=== PATIENT | female | born 1995 | race Caucasian/White ===

== ENCOUNTER 2016-12-15 18:55 | Emergency (ER) | payer MEDICAID ==
--- NOTE | 2016-12-15 19:13 | ER Document Report ---
ED Psych Disorder / Suicide - General Chief Complaint: Possible Overdose Stated Complaint: POSSIBLE OVERDOSE Time Seen by Provider: 12/15/16 19:02 Mode of Arrival: Medic Information source: Patient - HPI Patient complains to provider of: Overdose, Suicidal attempt Onset: This evening Onset was: Sudden Quality of pain: No pain Suicide Risk Factors: Depressed Situational problems related to: Recent Suicide Attempt Method: Overdose Overdose of: Anti-depressants Strength: 200 Amount: 7 Time of ingestion: 17:00 Normal mood: No Associated symptoms: Depressed, Flat affect Similar symptoms previously: No Recently seen / treated by doctor: No Notes: Patient is a 21-year-old female patient is a 21-year-old female with a history of depression, ODD, ADHD, bipolar disorder, who was brought to the emergency room by EMS for suicide attempt by overdose, patient admits to taking 7 Seroquel 200 mg tablets at approximately 5 PM this evening, she admits that she was trying to kill herself because her grandfather recently and she wants to join him because he was always very kind and supportive to her, she denies any previous attempts, denies any injury otherwise, states she did not eat much food today, and feels tired at the present time but denies any nausea or vomiting, patient was administered activated charcoal via EMS in route to the emergency room - Related Data Allergies/Adverse Reactions: No Known Allergies Allergy (Verified 12/15/16 19:05) Home Medications: Current Home Medications Aripiprazole 10 mg PO DAILY 12/15/16 [History] Buspirone HCl 1 tab PO BID 12/15/16 [History] Fluoxetine HCl 20 mg PO DAILY 12/15/16 [History] Fluoxetine HCl [Prozac] 40 mg PO QHS 12/15/16 [History] Guanfacine HCl [Guanfacine HCl ER] 2 tab PO QAM 12/15/16 [History] Quetiapine Fumarate 200 mg PO DAILY 12/15/16 [History] Past Medical History - General Information source: Patient - Social History Smoking Status: Never Smoker Frequency of alcohol use: None Drug Abuse: None Family History: Reviewed & Not Pertinent Review of Systems - Review of Systems Constitutional: No symptoms reported EENT: No symptoms reported Cardiovascular: No symptoms reported Respiratory: No symptoms reported Gastrointestinal: No symptoms reported Genitourinary: No symptoms reported Female Genitourinary: No symptoms reported Musculoskeletal: No symptoms reported Skin: No symptoms reported Hematologic/Lymphatic: No symptoms reported Neurological/Psychological: See HPI -: Yes All other systems reviewed and negative Physical Exam - Vital signs Vitals: Temp Pulse Resp BP Pulse Ox 97.9 F 101 H 18 127/85 H 97 12/15/16 19:02 12/15/16 19:02 12/15/16 19:02 12/15/16 19:02 12/15/16 19:02 Interpretation: Tachycardic - General General appearance: Alert - Appears drowsy In distress: None - HEENT Head: Normocephalic, Atraumatic Eyes: Normal Conjunctiva: Normal Extraocular movements intact: Yes Eyelashes: Normal Pupils: PERRL Ears: Normal Sinus: Normal Mouth/Lips: Other - Black discoloration to lips and teeth from activated charcoal - Respiratory Respiratory status: No respiratory distress Chest status: Nontender Breath sounds: Normal Chest palpation: Normal - Cardiovascular Rhythm: Regular Heart sounds: Normal auscultation Murmur: No - Abdominal Inspection: Normal Distension: No distension Bowel sounds: Normal Tenderness: Nontender Organomegaly: No organomegaly - Back Back: Normal, Nontender - Extremities General upper extremity: Normal inspection, Nontender, Normal color, Normal ROM , Normal temperature General lower extremity: Normal inspection, Nontender, Normal color, Normal ROM , Normal temperature, Normal weight bearing. No: Julio's sign - Neurological Neuro grossly intact: Yes Cognition: Normal Orientation: AAOx4 Nanette Coma Scale Eye Opening: Spontaneous [place] Coma Scale Verbal: Oriented Nanette Coma Scale Motor: Obeys Commands Nanette Coma Scale Total: 15 Speech: Normal Motor strength normal: LUE, RUE, LLE, RLE Sensory: Normal - Psychological Associated symptoms: Depressed, Flat affect - Skin Skin Temperature: Warm Skin Moisture: Dry Skin Color: Normal Course - Re-evaluation Re-evalutation: 12/15/16 19:31 Patient was discussed with [facility] poison control, who recommends monitoring patient for tachycardia, QTC prolongation, etc. observation prior to medical clearance patient clearly admits to this being a suicide attempt, stating she wants to join her grandfather who recently , She is unsafe to return home at this point in time, therefore IVC paperwork will be completed and patient will be held until evaluation by mental health team for further treatment recommendation - Vital Signs Vital signs: Temp Pulse Resp BP Pulse Ox 97.9 F 101 H 18 127/85 H 97 12/15/16 19:02 12/15/16 19:02 12/15/16 19:02 12/15/16 19:02 12/15/16 19:02 - EKG Interpretation by Me EKG shows normal: Sinus rhythm Rate: Normal Rhythm: NSR Discharge - Discharge Clinical Impression: Attempted suicide Drug overdose Qualifiers: Encounter type: initial encounter Injury intent: intentional self-harm Qualified Code(s): T50.902A - Poisoning by unspecified drugs, medicaments and biological substances, intentional self-harm, initial encounter Depression Qualifiers: Depression Type: unspecified Qualified Code(s): F32.9 - Major depressive disorder, single episode, unspecified Condition: Stable Disposition: PSYCH HOSP/UNIT
[2016-12-15 20:24] LABS: ABSOLUTE BASOPHILS # (AUTO) 0.1 10^3/uL (0.0-0.2); ABSOLUTE LYMPHOCYTES (AUTO) 1.5 10^3/uL (0.5-4.7); ABSOLUTE MONOCYTES (AUTO) 0.6 10^3/uL (0.1-1.4); ABSOLUTE NEUT (AUTO) 7.9 10^3/uL (1.7-8.2); BASOPHILS % (AUTO) 0.7 % (0-2); EOSINOPHILS % (AUTO) 0.2 % (0-6); HEMATOCRIT 41.1 % (36.0-47.0); HEMOGLOBIN 13.8 g/dL (12.0-15.5); HGB HCT DIFFERENCE 0.3; LYMPHOCYTES % (AUTO) 15.2 % (13-45); MEAN CORPUSCULAR HEMOGLOBIN 27.6 pg (27.0-33.4); MEAN CORPUSCULAR HGB CONC 33.6 g/dL (32.0-36.0); MEAN CORPUSCULAR VOLUME 82 fl (80-97); MONOCYTES % (AUTO) 6.4 % (3-13); RED BLOOD COUNT 4.99 10^6/uL (3.72-5.28); RED CELL DISTRIBUTION WIDTH 12.9 % (11.5-14.0); SEGMENTED NEUTROPHILS % (AUTO) 77.5 % (42-78); WHITE BLOOD COUNT 10.2 10^3/uL (4.0-10.5)
[2016-12-15 20:43] LABS: ALANINE AMINOTRANSFERASE 23 U/L (9-52); ALBUMIN 3.9 g/dL (3.5-5.0); ALKALINE PHOSPHATASE 81 U/L (38-126); ANION GAP 12 (5-19); ASPARTATE AMINO TRANSFERASE 24 U/L (14-36); BILIRUBIN,DIRECT 0.3 mg/dL (0.0-0.4); BILIRUBIN,TOTAL 0.4 mg/dL (0.2-1.3); BLOOD UREA NITROGEN 17 mg/dL (7-20); CALCIUM 9.7 mg/dL (8.4-10.2); CARBON DIOXIDE 23 mmol/L (22-30); CHLORIDE 106 mmol/L (98-107); CREATININE RESULT 0.91 mg/dL (0.52-1.25); GLUCOSE 106 mg/dL (75-110); POTASSIUM 4.3 mmol/L (3.6-5.0); SODIUM 141.3 mmol/L (137-145); TOTAL PROTEIN 7.4 g/dL (6.3-8.2)
[2016-12-15 20:45] LABS: ALCOHOL < 10 mg/dL (NONE DETECTED)
[2016-12-15 22:27] LABS: APPEARANCE,URINE CLOUDY; BILIRUBIN,URINE NEGATIVE (NEGATIVE); GLUCOSE, URINE NEGATIVE (NEGATIVE); KETONES,URINE NEGATIVE (NEGATIVE); LEUKOCYTE ESTERASE,URINE MODERATE (NEGATIVE); NITRITE,URINE NEGATIVE (NEGATIVE); PROTEIN,URINE 30 mg/dL (NEGATIVE); URINE SPECIFIC GRAVITY 1.028; UROBILINOGEN,URINE NEGATIVE mg/dL (<2.0)
[2016-12-15 22:41] LABS: URINE BARBITURATES SCREEN NEGATIVE; URINE METHADONE SCREEN NEGATIVE; URINE OPIATES LOW NEGATIVE; URINE PHENCYCLIDINE SCREEN NEGATIVE
--- NOTE | 2016-12-16 09:35 | ER Document Report ---
Doctor's Note Notes: 12/16/16 09:34 I have evaluated this pt. this am and she has no c/o at this time. She feels all of her needs are being met and her physical exam is normal. She is awaiting disposition per mental health.
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
[2016-12-16 15:47] VITALS: BP 126/73
--- NOTE | 2016-12-16 17:45 | EKG REPORT ---
SEVERITY:- NORMAL ECG - SINUS RHYTHM : Confirmed by: Carin Andrea MD 16-Dec-2016 17:45:33
== END 2016-12-16 15:40 | disposition home or self-care (01) ==
LOC: ER 18:55
DX: T43.592A Poisoning by other antipsychotics and neuroleptics, intentional self-harm, initial encounter (principal); F32.9 Major depressive disorder, single episode, unspecified; F91.3 Oppositional defiant disorder; Z79.899 Other long term (current) drug therapy
CPT/HCPCS: 36415; 80053; 80307; 81001; 84703; 85025; 93005; 93010; 99285

== ENCOUNTER 2017-09-01 15:36 | Emergency (ER) | payer MEDICAID ==
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
--- NOTE | 2017-09-01 18:50 | RADIOLOGY REPORT (SQ) ---
EXAM DESCRIPTION: CHEST PA/LAT COMPLETED DATE/TIME: 09/01/2017 6:37 pm REASON FOR STUDY: 6, cough COMPARISON: None. EXAM PARAMETERS: NUMBER OF VIEWS: two views TECHNIQUE: Digital Frontal and Lateral radiographic views of the chest acquired. RADIATION DOSE: NA LIMITATIONS: none FINDINGS: LUNGS AND PLEURA: No opacities, masses or pneumothorax. No pleural effusion. MEDIASTINUM AND HILAR STRUCTURES: No masses or contour abnormalities. HEART AND VASCULAR STRUCTURES: Heart normal size. No evidence for failure. BONES: No acute findings. HARDWARE: None in the chest. OTHER: No other significant finding. IMPRESSION: NO SIGNIFICANT RADIOGRAPHIC FINDING IN THE CHEST. TECHNICAL DOCUMENTATION: JOB ID: [id number] [employer]- All Rights Reserved
--- NOTE | 2017-09-01 18:50 | RADIOLOGY REPORT (SQ) ---
EXAM DESCRIPTION: WRIST LEFT 3 VIEWS COMPLETED DATE/TIME: 09/01/2017 6:37 pm REASON FOR STUDY: 8, left wrist COMPARISON: None. NUMBER OF VIEWS: Three views. TECHNIQUE: AP, lateral, and oblique radiographic images acquired of the left wrist. LIMITATIONS: None. FINDINGS: MINERALIZATION: Normal. BONES: No acute fracture or dislocation. No worrisome bone lesions. Normal alignment. SOFT TISSUES: No soft tissue swelling. No foreign body. OTHER: No other significant finding. IMPRESSION: NEGATIVE STUDY OF THE LEFT WRIST. NO RADIOGRAPHIC EVIDENCE OF ACUTE INJURY. TECHNICAL DOCUMENTATION: JOB ID: [id number] [employer]- All Rights Reserved
[2017-09-01] MEDS ORDERED: QUETIAPINE FUMARATE 25 MG TABLET PO ONE (19:39)
[2017-09-01] MEDS ORDERED: FLUOXETINE HCL 20 MG CAPSULE PO ONE (19:39)
[2017-09-01] MEDS ORDERED: BUSPIRONE HCL 10 MG TABLET PO ONE (19:39)
[2017-09-01] MEDS ORDERED: ARIPIPRAZOLE 5 MG TABLET PO ONE (19:41)
[2017-09-02 19:54] VITALS: BP 135/79
== END 2017-09-02 19:50 | disposition home or self-care (01) ==
LOC: ER 15:36 → EEVIPCON 15:36 → ER 09-02 19:50
DX: M25.572 Pain in left ankle and joints of left foot (principal); M79.672 Pain in left foot; M25.532 Pain in left wrist; Y04.2XXA Assault by strike against or bumped into by another person, initial encounter; Y92.009 Unspecified place in unspecified non-institutional (private) residence as the place of occurrence of the external cause
CPT/HCPCS: 99284; 73610; 71046; 73630; 73110; J3490 ×4

== ENCOUNTER 2017-09-10 11:57 | Emergency (ER) | payer SELFPAY ==
--- NOTE | 2017-09-10 12:05 | ER Document Report ---
ED General - General Mode of Arrival: Medic Information source: Patient TRAVEL OUTSIDE OF THE U.S. IN LAST 30 DAYS: No - HPI Onset: Just prior to arrival Onset/Duration: Gradual Quality of pain: No pain Severity: None Pain Level: Denies Associated symptoms: denies: Chills, Fever, Shortness of breath Exacerbated by: Denies Relieved by: Denies Similar symptoms previously: Yes Recently seen / treated by doctor: No - General Stated Complaint: SUICIDAL IDEATION Time Seen by Provider: 09/10/17 12:03 Notes: This is a 22-year-old female with a history of depression and anxiety is brought in by ambulance because of suicidal ideations. Patient states she is unable to live with her mother in [facility]. She states she is homeless. She is previously from [place]. She denies any overdose currently. She has had a history of suicidal attempt with Seroquel. She does not have an active plan at this time. (TRINITY FONSECA) - Related Data Allergies/Adverse Reactions: No Known Allergies Allergy (Verified 09/01/17 15:39) Past Medical History - General Information source: Patient - Social History Smoking Status: Current Every Day Smoker Cigarette use (# per day): Yes - 1 pack a day Chew tobacco use (# tins/day): No Frequency of alcohol use: None Drug Abuse: None Lives with: Homeless Family History: Reviewed & Not Pertinent Patient has suicidal ideation: Yes Patient has homicidal ideation: No - Past Medical History Cardiac Medical History: Reports: None Pulmonary Medical History: Reports: Hx Asthma EENT Medical History: Reports: None Neurological Medical History: Reports: None Endocrine Medical History: Reports: None Renal/ Medical History: Reports: None. Denies: Hx Peritoneal Dialysis Malignancy Medical History: Reports: None GI Medical History: Reports: None Musculoskeltal Medical History: Reports None Skin Medical History: Reports None Psychiatric Medical History: Reports: Hx Attention Deficit Hyperactivity Disorder, Hx Bipolar Disorder, Hx Depression Traumatic Medical History: Reports: None Infectious Medical History: Reports: None Past Surgical History: Reports: Hx Tonsillectomy - and adenoids Review of Systems - Review of Systems Notes: Review of systems: Constitutional: Denies fever, chills. EENT: Denies ear pain, sinus tenderness, throat pain, throat swelling. Cardiovascular: Denies chest pain, palpitations, dyspnea or edema. Respiratory: Denies wheezing, cough, hemoptysis. Abdomen: Denies abdominal pain, nausea, vomiting, diarrhea. Denies BRBPR or melena. Genitourinary: Denies dysuria, pyuria, hematuria, flank pain. Musculoskeletal: denies joint pain or swelling, denies back pain. Neurologic: See H&P Skin: Denies rash, lesions. (TRINITY FONSECA) Physical Exam - Vital signs Vitals: Temp Pulse Resp BP Pulse Ox 97.8 F 96 18 131/89 H 100 09/10/17 12:08 09/10/17 12:08 09/10/17 12:08 09/10/17 12:08 09/10/17 12:08 Notes: Physical exam: GENERAL: 82-year-old female, alert and oriented 3, no acute distress HEAD: Atraumatic, normocephalic. EYES: Pupils equal round and reactive to light, extraocular movements intact, sclera anicteric, conjunctiva are normal. ENT: TMs normal, nares patent, oropharynx clear without exudates. Moist mucous membranes. NECK: Normal range of motion, supple without obvious mass or JVD. LUNGS: Breath sounds clear to auscultation bilaterally and equal. No wheezes rales or rhonchi. HEART: Regular rate and rhythm without murmurs, rubs or gallops. ABDOMEN: Soft, normoactive bowel sounds. No tenderness to palpation. No guarding, no rebound. No masses appreciated. EXTREMITIES: Normal range of motion, no pitting or edema. No clubbing or cyanosis. NEUROLOGICAL: Cranial nerves II through XII grossly intact. Normal speech, moving all extremities. PSYCH: Depressed, states she has suicidal ideations. SKIN: Warm, Dry, normal turgor, no rashes or lesions noted. (TRINITY FONSECA) Course - EKG Interpretation by Ct Rate: Tachycardia Rhythm: NSR - EKG shows sinus tachycardia with a ventricular rate of 105, no acute ST-T wave changes - Re-evaluation Re-evalutation: 09/10/17 12:46 Patient was seen by Dr. Barragan from the psychology team who knows the patient well. The patient has no active suicidal plan and she has been cleared for outpatient counseling. The patient did stay at the homeless long-term last night and will be referred back to their with referrals to counseling. From a medical standpoint: She looks quite good. She refused blood work and she appears competent at this time to do so. The urine analysis showed some white cells and red cells with fair amount of squamous epithelial cells. So this is not a great sample and the patient states that she recently has her menstrual cycle. She does not have any symptoms of UTI. Urine culture will be sent. (TRINITY FONSECA) - Vital Signs Vital signs: Temp Pulse Resp BP Pulse Ox 97.8 F 96 18 131/89 H 100 09/10/17 12:08 09/10/17 12:08 09/10/17 12:08 09/10/17 12:08 09/10/17 12:08 - Laboratory Laboratory results interpreted by me: 09/10/17 12:10 Urine Protein 30 H Urine Blood LARGE H Ur Leukocyte Esterase SMALL H Discharge - Discharge Clinical Impression: Homeless Depression Qualifiers: Depression Type: unspecified Qualified Code(s): F32.9 - Major depressive disorder, single episode, unspecified Condition: Stable Disposition: HOME, SELF-CARE Additional Instructions: DEPRESSION: Your evaluation reveals that you have mental depression. While symptoms may be vague, they often include disturbance of sleep, fatigue, loss of appetite , and general loss of interest in life. While depression may be a side effect of drugs, or a reaction to a major change in your life, many cases have no known cause. If depression is acute, and related to a major loss in your life, you can expect it to clear completely with time. If you have been depressed a long time , are prone to repeated bouts of depression or low mood, or have been thinking of suicide, get help. Depression can be treated with anti-depressant medication and counselling. Long-term depression will often take a few weeks to clear, even with appropriate medication. Follow-up care is important. SUICIDAL IDEATION: Suicidal ideation is a common medical term for thoughts about suicide, which may be as detailed as a formulated plan, without the suicidal act itself. Although most people who undergo suicidal ideation do not commit suicide, some go on to make suicide attempts. The range of suicidal ideation varies greatly from fleeting to detailed planning, role playing, and unsuccessful attempts. While thoughts about suicide are common, most people do not carry out serious actions to commit suicide. Based upon your evaluation and discussion with you, we do not believe you are currently at risk to act upon your thoughts of suicide. You have agreed to return to the Emergency Department, at any time , if you feel inclined to act upon your suicidal thoughts. FOLLOW-UP CARE: You have been given the homeless resources packet, street sheet with community resources and outpatient mental health resources list. You have been encouraged to follow up with [facility] walk in clinic to be seen for outpatient services and [facility] for your housing needs. If you experience worsening or a significant change in your symptoms, notify the physician immediately or return to the Emergency Department at any time for re-evaluation. Referrals: [facility] [Provider Group] - Follow up as needed
[2017-09-10 12:10] VITALS: BP 131/89
[2017-09-10 12:43] LABS: APPEARANCE,URINE CLOUDY; BILIRUBIN,URINE NEGATIVE (NEGATIVE); COLOR,URINE YELLOW; GLUCOSE, URINE NEGATIVE (NEGATIVE); KETONES,URINE NEGATIVE (NEGATIVE); LEUKOCYTE ESTERASE,URINE SMALL (NEGATIVE); NITRITE,URINE NEGATIVE (NEGATIVE); PROTEIN,URINE 30 mg/dL (NEGATIVE); URINE SPECIFIC GRAVITY 1.027; UROBILINOGEN,URINE NEGATIVE mg/dL (<2.0)
[2017-09-10 12:58] LABS: URINE AMPHETAMINES SCREEN NEGATIVE; URINE BARBITURATES SCREEN NEGATIVE; URINE BENZODIAZEPINES SCREEN NEGATIVE; URINE COCAINE SCREEN NEGATIVE; URINE MARIJUANA (THC) SCREEN NEGATIVE; URINE METHADONE SCREEN NEGATIVE; URINE PHENCYCLIDINE SCREEN NEGATIVE
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
--- NOTE | 2017-09-10 15:19 | EKG REPORT ---
SEVERITY:- OTHERWISE NORMAL ECG - SINUS TACHYCARDIA BORDERLINE RIGHT AXIS DEVIATION : Confirmed by: Benito Garcia 10-Sep-2017 15:18:10
== END 2017-09-10 13:00 | disposition home or self-care (01) ==
LOC: ER 11:57
DX: F32.9 Major depressive disorder, single episode, unspecified (principal); Z59.0 Homelessness; F41.9 Anxiety disorder, unspecified; Z79.899 Other long term (current) drug therapy; F17.210 Nicotine dependence, cigarettes, uncomplicated
CPT/HCPCS: 80307; 81001; 87086; 93005; 93010; 99285

== ENCOUNTER 2018-03-11 15:53 | Emergency (ER) | payer SELFPAY ==
[2018-03-11] MEDS ORDERED: IBUPROFEN 600 MG TABLET PO ONE (16:47)
--- NOTE | 2018-03-11 16:52 | ER Document Report ---
ED Medical Screen (RME) - General Chief Complaint: Nausea/Vomiting Stated Complaint: SYNCOPE Time Seen by Provider: 03/11/18 16:43 Notes: 23-year-old female who just spent a month in skilled nursing was discharged from skilled nursing system today. She walked onto the contract post office clerk's office in a chair and began having a mild headache. She states she gets a headache every day and this is the same character of pain behind both eyes and throughout her head. She stated that it was at that point that she passed out. She stated that she felt as if she was unconscious for 30 minutes was woken up by a deputy. The patient denies any fever chills or neck stiffness. States she feels very nauseous. States her abdomen feels crampy but as she has no focal pain denies any problems with urination. Patient has nowhere to go. She is homeless after being discharged from skilled nursing. Moved out of her family's house and has no residence. TRAVEL OUTSIDE OF THE U.S. IN LAST 30 DAYS: No - Related Data Allergies/Adverse Reactions: No Known Allergies Allergy (Verified 09/01/17 15:39) Past Medical History Pulmonary Medical History: Reports: Hx Asthma Renal/ Medical History: Denies: Hx Peritoneal Dialysis Psychiatric Medical History: Reports: Hx Attention Deficit Hyperactivity Disorder, Hx Bipolar Disorder, Hx Depression Past Surgical History: Reports: Hx Tonsillectomy - and adenoids Physical Exam - Vital signs Vitals: Temp Pulse Resp BP Pulse Ox 98.1 F 88 16 96/79 L 97 03/11/18 16:16 03/11/18 16:16 03/11/18 16:16 03/11/18 16:16 03/11/18 16:16 - Notes Notes: Abdomen is soft and supple my exam. Patient has poor eye contact. Neurologically she is intact cranial nerves II through XII intact with equal chemistry quality control technician strength. She states she has these headaches every day I do not feel a need to image her at this time. We will give her some ibuprofen she has already had a Zofran ODT. There may be a social component here since the patient has no vertigo. Course - Re-evaluation Re-evalutation: 03/11/18 16:51 Syncope workup - Vital Signs Vital signs: Temp Pulse Resp BP Pulse Ox 98.1 F 88 16 96/79 L 97 03/11/18 16:16 08/13/18 16:16 03/11/18 16:16 03/11/18 16:16 03/11/18 16:16
[2018-03-11 18:10] LABS: ABSOLUTE LYMPHOCYTES (AUTO) 1.3 10^3/uL (0.5-4.7); ABSOLUTE MONOCYTES (AUTO) 0.7 10^3/uL (0.1-1.4); ABSOLUTE NEUT (AUTO) 12.3 10^3/uL (1.7-8.2); BASOPHILS % (AUTO) 0.3 % (0-2); EOSINOPHILS % (AUTO) 0.1 % (0-6); HEMATOCRIT 42.8 % (36.0-47.0); HEMOGLOBIN 14.6 g/dL (12.0-15.5); LYMPHOCYTES % (AUTO) 9.2 % (13-45); MEAN CORPUSCULAR HEMOGLOBIN 28.9 pg (27.0-33.4); MEAN CORPUSCULAR HGB CONC 34.2 g/dL (32.0-36.0); MEAN CORPUSCULAR VOLUME 85 fl (80-97); MONOCYTES % (AUTO) 4.6 % (3-13); PLATELET COUNT 265 10^3/uL (150-450); RED BLOOD COUNT 5.06 10^6/uL (3.72-5.28); RED CELL DISTRIBUTION WIDTH 12.5 % (11.5-14.0); SEGMENTED NEUTROPHILS % (AUTO) 85.8 % (42-78); TOTAL CELLS COUNTED % (AUTO) 100 %; WHITE BLOOD COUNT 14.3 10^3/uL (4.0-10.5)
[2018-03-11 18:24] LABS: ALANINE AMINOTRANSFERASE 31 U/L (9-52); ALBUMIN 4.9 g/dL (3.5-5.0); ALKALINE PHOSPHATASE 113 U/L (38-126); ANION GAP 16 (5-19); ASPARTATE AMINO TRANSFERASE 23 U/L (14-36); BILIRUBIN,DIRECT 0.2 mg/dL (0.0-0.4); BILIRUBIN,TOTAL 0.6 mg/dL (0.2-1.3); BLOOD UREA NITROGEN 13 mg/dL (7-20); CALCIUM 10.1 mg/dL (8.4-10.2); CARBON DIOXIDE 24 mmol/L (22-30); CHLORIDE 106 mmol/L (98-107); GLUCOSE 98 mg/dL (75-110); LIPASE 187.3 U/L (23-300); POTASSIUM 4.5 mmol/L (3.6-5.0); SODIUM 145.5 mmol/L (137-145); TOTAL PROTEIN 8.1 g/dL (6.3-8.2)
[2018-03-11 19:19] LABS: APPEARANCE,URINE SLIGHTLY-CLOUDY; BILIRUBIN,URINE NEGATIVE (NEGATIVE); COLOR,URINE YELLOW; GLUCOSE, URINE NEGATIVE (NEGATIVE); KETONES,URINE 20 mg/dL (NEGATIVE); LEUKOCYTE ESTERASE,URINE SMALL (NEGATIVE); NITRITE,URINE NEGATIVE (NEGATIVE); PROTEIN,URINE 30 mg/dL (NEGATIVE); URINE SPECIFIC GRAVITY 1.027; UROBILINOGEN,URINE NEGATIVE mg/dL (<2.0)
--- NOTE | 2018-03-11 19:25 | RADIOLOGY REPORT (SQ) ---
EXAM DESCRIPTION: CT HEAD WITHOUT COMPLETED DATE/TIME: 03/11/2018 7:16 pm REASON FOR STUDY: headache, syncope COMPARISON: None. TECHNIQUE: Axial images acquired through the brain without intravenous contrast. Images reviewed wi th bone, brain and subdural windows. Additional sagittal and coronal reconstructions were generated. Images stored on PACS. All CT scanners at this facility use dose modulation, iterative reconstruction, and/or weight based d osing when appropriate to reduce radiation dose to as low as reasonably achievable (ALARA). [facility]: Dose Right [facility]: CareDose [facility]: Dose Right [facility]: Teradose 4D [facility]: [employer] RADIATION DOSE: CT Rad equipment meets quality standard of care and radiation dose reduction techniq ues were employed. CTDIvol: 53.2 mGy. DLP: 937 mGy-cm. mGy. LIMITATIONS: None. FINDINGS: VENTRICLES: Normal size and contour. CEREBRUM: No masses. No hemorrhage. No midline shift. No evidence for acute infarction. Normal gra y/white matter differentiation. No areas of low density in the white matter. CEREBELLUM: No masses. No hemorrhage. No alteration of density. No evidence for acute infarction. EXTRAAXIAL SPACES: No fluid collections. No masses. ORBITS AND GLOBE: No intra- or extraconal masses. Normal contour of globe without masses. CALVARIUM: No fracture. PARANASAL SINUSES: No fluid or mucosal thickening. SOFT TISSUES: No mass or hematoma. OTHER: No other significant finding. IMPRESSION: NORMAL BRAIN CT WITHOUT CONTRAST. EVIDENCE OF ACUTE STROKE: NO. COMMENT: Quality ID # [id number]: Final reports with documentation of one or more dose reduction techniques (e.g., Automated exposure control, adjustment of the mA and/or kV according to patient size, use of iterative reconstruction technique) TECHNICAL DOCUMENTATION: JOB ID: [id number]- All Rights Reserved Reading location - IP/workstation name: [email or web address]
[2018-03-11] MEDS ORDERED: DIAZEPAM 5 MG TABLET PO ONE (19:34)
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
[2018-03-11 19:51] VITALS: BP 115/72
--- NOTE | 2018-03-11 20:38 | EKG REPORT ---
SEVERITY:- OTHERWISE NORMAL ECG - SINUS RHYTHM BORDERLINE RIGHT AXIS DEVIATION : Confirmed by: Paul Mares MD 11-Mar-2018 20:37:56
== END 2018-03-11 19:45 | disposition home or self-care (01) ==
LOC: ER 15:53
DX: R55 Syncope and collapse (principal); F41.9 Anxiety disorder, unspecified; F32.9 Major depressive disorder, single episode, unspecified; R51 Headache; J45.909 Unspecified asthma, uncomplicated; Z59.0 Homelessness
CPT/HCPCS: 36415; 70450; 80053; 81001; 81025; 83690; 85025; 93005; 93010; 99285

== ENCOUNTER 2018-04-21 20:52 | Emergency (ER) | payer SELFPAY ==
[2018-04-22] MEDS ORDERED: ACETAMINOPHEN 325 MG TABLET PO ONE (02:13)
[2018-04-22] MEDS ORDERED: ACETAMINOPHEN 325 MG TABLET ONE (04:20)
--- NOTE | 2018-04-22 05:25 | RADIOLOGY REPORT (SQ) ---
EXAM DESCRIPTION: XR ANKLE 3 OR MORE VIEWS COMPLETED DATE/TME: 04/22/2018 02:13 CLINICAL HISTORY: 23 years, Female, pain COMPARISON: None. FINDINGS: 3 views of the right ankle. No acute fracture or dislocation. Normal osseous mineralization. Tibial plafond and talar dome have appropriate alignment. Base of the fifth metatarsal is intact. IMPRESSION: 1. No acute fracture or dislocation. 2010 [employer]- All Rights Reserved
--- NOTE | 2018-04-22 05:26 | RADIOLOGY REPORT (SQ) ---
EXAM DESCRIPTION: XR FOOT 3 OR MORE VIEWS COMPLETED DATE/TME: 04/22/2018 02:13 CLINICAL HISTORY: 23 years, Female, pain COMPARISON: None. FINDINGS: 3 views of the left foot. No acute fracture or dislocation. Normal osseous mineralization. Tarsals and metatarsals are appropriately aligned. IMPRESSION: 1. No acute fracture or dislocation. 2010 [employer] [employer]- All Rights Reserved
[2018-04-22 05:34] VITALS: BP 104/64
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
== END 2018-04-22 06:50 | disposition home or self-care (01) ==
LOC: ER 20:52
DX: M25.571 Pain in right ankle and joints of right foot (principal); M79.671 Pain in right foot; S91.332A Puncture wound without foreign body, left foot, initial encounter; M79.672 Pain in left foot; W26.8XXA Contact with other sharp object(s), not elsewhere classified, initial encounter; Y93.01 Activity, walking, marching and hiking; J45.909 Unspecified asthma, uncomplicated
CPT/HCPCS: 99283

== ENCOUNTER 2018-04-27 19:48 | Emergency (ER) | payer OTHER ==
[2018-04-27] MEDS ORDERED: ACETAMINOPHEN 325 MG TABLET PO ONE (20:11)
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
[2018-04-27 20:14] VITALS: BP 111/59
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
--- NOTE | 2018-04-27 21:05 | RADIOLOGY REPORT (SQ) ---
EXAM DESCRIPTION: TIBIA FIBULA RIGHT COMPLETED DATE/TIME: 04/27/2018 8:54 pm REASON FOR STUDY: RIGHT LEG PAIN, INJURY COMPARISON: None. NUMBER OF VIEWS: Two views. TECHNIQUE: Two radiographic images acquired of the right tibia and fibula to include the knee and an kle in at least one projection. LIMITATIONS: None. FINDINGS: MINERALIZATION: Normal. BONES: No acute fracture or dislocation. No worrisome bone lesions. SOFT TISSUES: No obvious swelling or foreign body. OTHER: No other significant finding. IMPRESSION: NO RADIOGRAPHIC EVIDENCE OF ACUTE INJURY. TECHNICAL DOCUMENTATION: JOB ID: [id number] [place]-72 2010 [employer]- All Rights Reserved Reading location - IP/workstation name: [employer]
== END 2018-04-27 21:27 | disposition home or self-care (01) ==
LOC: ER 19:48
DX: S80.11XA Contusion of right lower leg, initial encounter (principal); M54.2 Cervicalgia; R51 Headache; M54.9 Dorsalgia, unspecified; M79.606 Pain in leg, unspecified; V13.4XXA Pedal cycle driver injured in collision with car, pick-up truck or van in traffic accident, initial encounter; Y93.55 Activity, bike riding; Y92.488 Other paved roadways as the place of occurrence of the external cause; J45.909 Unspecified asthma, uncomplicated; F17.210 Nicotine dependence, cigarettes, uncomplicated
CPT/HCPCS: 70450; 72125; 99284

== ENCOUNTER 2018-05-25 08:43 | Emergency (ER) | payer OTHER ==
--- NOTE | 2018-05-25 09:02 | ER Document Report ---
ED General - General Chief Complaint: Anxiety Stated Complaint: CHEST PAIN Time Seen by Provider: 05/25/18 09:00 Notes: 23-year-old female to the emergency department for evaluation of chest pain. Patient thinks that she might be . Is homeless. Spent the night in a public bathroom with her "fianc". Has a history of mental health issues. Not taking her medications. States that she is hungry. Denies any abdominal pain, back pain, fever, chills, sweats, other issues at this time. Arrived here via EMS. TRAVEL OUTSIDE OF THE [place] IN LAST 30 DAYS: No - HPI Onset: Just prior to arrival Onset/Duration: Gone Severity: Mild Pain Level: 0 Associated symptoms: None - Related Data Allergies/Adverse Reactions: No Known Allergies Allergy (Verified 05/25/18 08:44) Past Medical History - General Information source: Patient - Social History Smoking Status: Current Every Day Smoker Frequency of alcohol use: None Drug Abuse: None Lives with: Homeless Family History: Reviewed & Not Pertinent - Medical History Notes: Bipolar disorder with seizures Pulmonary Medical History: Reports: Hx Asthma Renal/ Medical History: Denies: Hx Peritoneal Dialysis Psychiatric Medical History: Reports: Hx Attention Deficit Hyperactivity Disorder, Hx Bipolar Disorder, Hx Depression Past Surgical History: Reports: Hx Tonsillectomy - and adenoids Review of Systems - Review of Systems Notes: Constitutional: denies: Chills, Diaphoresis, Fever, Malaise, Weakness EENT: denies: Eye discharge, Blurred vision, Tearing, Double vision, Nose congestion, Nose discharge, Throat swelling, Mouth pain Cardiovascular: denies: Palpitations, Heart racing, Orthopnea, Dyspnea,. Did have an episode of chest pain but now resolved. Respiratory: denies: Cough, Hurts to breathe, Wheezing, Shortness of breath Gastrointestinal: denies: Abdominal pain, Diarrhea, Nausea, Vomiting, Black stools, bright red blood in stool Genitourinary: denies: Burning, Dysuria, Discharge, Frequency, Flank pain, Hematuria Musculoskeletal: denies: Joint pain, Joint swelling, Muscle pain, Muscle stiffness, back pain Hematologic/Lymphatic: denies: Anemia, Easy bleeding, Easy bruising, Blood clots Neurological/Psychological: denies: Confusion, Dementia, Depression, Loss of consciousness Skin: No lesions, no masses, no skin breakdown, no abscesses Physical Exam - Vital signs Vitals: Temp Pulse Resp BP Pulse Ox 97.6 F 62 16 110/74 100 05/25/18 08:46 05/25/18 08:46 05/25/18 08:46 05/25/18 08:46 05/25/18 08:46 Interpretation: Normal - General General appearance: Appears well, Alert - HEENT Head: Normocephalic, Atraumatic Eyes: Normal Pupils: PERRL - Respiratory Respiratory status: No respiratory distress Chest status: Nontender Breath sounds: Normal Chest palpation: Normal - Cardiovascular Rhythm: Regular Heart sounds: Normal auscultation Murmur: No - Abdominal Inspection: Normal Distension: No distension Bowel sounds: Normal Tenderness: Nontender Organomegaly: No organomegaly - Back Back: Normal, Nontender - Extremities General upper extremity: Normal inspection, Nontender, Normal color, Normal ROM , Normal temperature General lower extremity: Normal inspection, Nontender, Normal color, Normal ROM , Normal temperature, Normal weight bearing. No: Julio's sign - Neurological Neuro grossly intact: Yes Cognition: Normal Orientation: AAOx4 [place] Coma Scale Eye Opening: Spontaneous [place] Coma Scale Verbal: Oriented [place] Coma Scale Motor: Obeys Commands [place] Coma Scale Total: 15 Speech: Normal Motor strength normal: LUE, RUE, LLE, RLE Sensory: Normal - Psychological Associated symptoms: Normal affect, Normal mood - Skin Skin Temperature: Warm Skin Moisture: Dry Skin Color: Normal Course - Re-evaluation Re-evalutation: 05/25/18 10:32 Outside ultrasound performed. No evidence of IUP. Will get urine and urine test and reassess. EKG reviewed and normal. Patient's heart rate is within normal limits. Not hypoxic. No risk factors for pulmonary embolism. PE RC negative. 05/25/18 11:45 Laboratory 05/25/18 09:45 Urine Color YELLOW Urine Appearance SLIGHTLY-CLOUDY Urine pH 6.0 Ur Specific [place] 1.017 Urine Protein NEGATIVE Urine Glucose (UA) NEGATIVE Urine Ketones NEGATIVE Urine Blood NEGATIVE Urine Nitrite NEGATIVE Urine Bilirubin NEGATIVE Urine Urobilinogen NEGATIVE Ur Leukocyte Esterase NEGATIVE Urine WBC (Auto) 0 Urine RBC (Auto) 1 Squamous Epi Cells Auto 3 Urine Mucus (Auto) MOD Urine Ascorbic Acid NEGATIVE Urine HCG, Qual NEGATIVE No evidence of . EKG unremarkable. Labs unremarkable. Will DC at this time. - Vital Signs Vital signs: Temp Pulse Resp BP Pulse Ox 97.6 F 62 16 110/74 100 05/25/18 08:46 05/25/18 08:46 05/25/18 08:46 05/25/18 08:46 05/25/18 08:46 - EKG Interpretation by Me EKG shows normal: Sinus rhythm, [place], Intervals, QRS Complexes, ST-T Waves Discharge - Discharge Clinical Impression: Homeless single person Chest pain Qualifiers: Chest pain type: unspecified Qualified Code(s): R07.9 - Chest pain, unspecified Condition: Good Instructions: Anxiety ([facility]), Chest Pain of Unclear Cause ([facility]) Additional Instructions: Please contact our social service liaison at the hospital if you need help. I find no major issues at this time. It does not appear that you are . Please return for any worsening symptoms or concerns. Referrals: [facility] [Outside] - Follow up as needed [facility] [Outside] - Follow up as needed
[2018-05-25 10:49] LABS: APPEARANCE,URINE SLIGHTLY-CLOUDY; BILIRUBIN,URINE NEGATIVE (NEGATIVE); COLOR,URINE YELLOW; GLUCOSE, URINE NEGATIVE (NEGATIVE); KETONES,URINE NEGATIVE (NEGATIVE); LEUKOCYTE ESTERASE,URINE NEGATIVE (NEGATIVE); NITRITE,URINE NEGATIVE (NEGATIVE); PROTEIN,URINE NEGATIVE (NEGATIVE); URINE SPECIFIC GRAVITY 1.017; UROBILINOGEN,URINE NEGATIVE mg/dL (<2.0)
[2018-05-25 12:18] VITALS: BP 115/56
--- NOTE | 2018-05-25 14:26 | EKG REPORT ---
SEVERITY:- BORDERLINE ECG - SINUS RHYTHM CONSIDER RIGHT VENTRICULAR HYPERTROPHY : Confirmed by: Benito Garcia 25-May-2018 14:26:27
== END 2018-05-25 12:30 | disposition home or self-care (01) ==
LOC: EEVIPCON 08:43 → ER 08:43
DX: R07.9 Chest pain, unspecified (principal); Z59.0 Homelessness; Z91.14 Patient's other noncompliance with medication regimen; F17.200 Nicotine dependence, unspecified, uncomplicated; J45.909 Unspecified asthma, uncomplicated
CPT/HCPCS: 81001; 81025; 93005; 93010; 99284